=== PATIENT | female | born 1955 | race Caucasian/White ===

== ENCOUNTER 2019-06-11 04:08 | Day surgery (SDC) | payer BC, SELFPAY | END 2019-06-11 14:26 | disposition home or self-care (01) | PROVIDERS: Emergency Provider Emergency Medicine; Visit Provider Urology | DX: N20.1 Calculus of ureter (principal) | CPT/HCPCS: 52353; 74176; 76705; 80053; 81001; 82365; 83690; 83735; 85025; 88300; 96361; 96365; 96374; 96375; 99285; C2625; J2270; J2405 ×2; J2704; J2710; J3010; J3490 ==

== ENCOUNTER 2019-12-19 15:08 | Outpatient (CLI) | payer MEDICARE, BC, SELFPAY ==
--- NOTE | 2019-12-19 15:15 | XRR_ITS ---
PROCEDURE INFORMATION: Exam: XR Abdomen, 1 View Exam date and time: 12/19/2019 3:34 PM Age: 64 years old Clinical indication: Condition or disease; Other: Ureteral stone; Prior surgery; Surgery date: 6+ months; Surgery type: Hysterectomy TECHNIQUE: Imaging protocol: XR of the abdomen. Views: Frontal supine view of the abdomen. 1 View. COMPARISON: CR XR KUB [id number] 06/15/2019 10:17 AM FINDINGS: Gastrointestinal tract: Normal. No bowel dilation. Organs: No kidney or ureteral stone evident. There are 2 right upper quadrant calcified gallstones. Bones/joints: Unremarkable. XR/XR KUB [id number] IMPRESSION: Gallstones. No kidney or ureteral stone evident.
== END 2019-12-19 15:09 | disposition home or self-care (01) ==
LOC: RAD 15:25
PROVIDERS: Family Provider Internal Medicine; PCP Internal Medicine; Visit Provider Urology
DX: N20.1 Calculus of ureter (principal); K80.80 Other cholelithiasis without obstruction
CPT/HCPCS: 74018

== ENCOUNTER 2021-05-18 09:02 | Outpatient (CLI) | payer MEDICARE, BC, SELFPAY ==
--- NOTE | 2021-05-18 09:11 | MM_ITS ---
WS: [id number] BILATERAL SCREENING DIGITAL MAMMOGRAM WITH CAD HISTORY: SCREENING COMPARISON: None available. Bilateral CC and MLO views submitted. Computer aided detection analyzed. Breast composition: There are scattered areas of fibroglandular density. No suspicious masses, microc alcifications or architectural distortion. Benign calcifications in the anterior LEFT breast. MM/[place] [id number] IMPRESSION: BI-RADS: 2-Benign FOLLOW UP: 1 Year Follow-up
== END 2021-05-18 09:03 | disposition home or self-care (01) ==
LOC: RADSHAW 09:09
PROVIDERS: PCP Internal Medicine; Visit Provider Internal Medicine
DX: Z12.31 Encounter for screening mammogram for malignant neoplasm of breast (principal)
CPT/HCPCS: 77067

== ENCOUNTER → 2021-07-14 09:22 | Outpatient (BNVA) | payer MEDICARE, BC, SELFPAY | PROVIDERS: PCP Internal Medicine; Visit Provider Nurse Practitioner Family | DX: Z20.822 Contact with and (suspected) exposure to COVID-19 (principal) | CPT/HCPCS: 87635 ==

== ENCOUNTER 2022-02-08 14:25 | Outpatient (CLI) | payer MEDICARE, BC, SELFPAY ==
--- NOTE | 2022-02-08 14:33 | XR_ITS ---
WS: [email or web address] XR KUB [id number] REASON FOR EXAM: UROLITHIASIS FINDINGS: Gallbladder calculi. No renal or ureteral calculi are identified. No calculi are seen overlying the bladder. No other significant abdominal abnormality. Degenerative change in the right sacroiliac joint. XR/XR KUB [id number] IMPRESSION: No urinary tract calculi identified.
== END 2022-02-08 14:26 | disposition home or self-care (01) ==
LOC: RAD 14:28
PROVIDERS: PCP Internal Medicine; Visit Provider Urology
DX: N20.9 Urinary calculus, unspecified (principal)
CPT/HCPCS: 74018; 81003

== ENCOUNTER 2023-01-21 09:14 | Outpatient (CLI) | payer MEDICARE, OTHER, SELFPAY ==
--- NOTE | 2023-01-21 09:25 | XR_ITS ---
WS: [email or web address] XR hand RT min 3V* [id number] REASON FOR EXAM: right thumb pain after fall FINDINGS: No fracture or dislocation identified. Moderate narrowing of the joint spaces of the DIP joints with subchondral sclerosis and osteophytosis . Similar arthropathic change in the metacarpal phalangeal joint and in the carpal metacarpal joint o f the thumb. The arthropathic change at the base of the thumb is significant. XR/XR hand RT min 3V* [id number] IMPRESSION: Osteoarthritis of the right hand as above. No acute abnormality.
== END 2023-01-21 09:15 | disposition home or self-care (01) ==
PROVIDERS: PCP Family Medicine; Visit Provider Family Medicine
DX: M19.041 Primary osteoarthritis, right hand (principal); Z13.6 Encounter for screening for cardiovascular disorders; R73.09 Other abnormal glucose
CPT/HCPCS: 73130; 80053; 80061

== ENCOUNTER 2023-02-28 17:04 | Outpatient (CLI) | payer MEDICARE, OTHER, SELFPAY | END 2023-02-28 17:05 | disposition home or self-care (01) | LOC: LAB 17:08 | PROVIDERS: PCP Family Medicine; Visit Provider Family Medicine | DX: E03.9 Hypothyroidism, unspecified (principal) | CPT/HCPCS: 36415; 84443 ==

== ENCOUNTER → 2023-03-23 14:51 | Outpatient (BNVA) | payer MEDICARE, OTHER, SELFPAY | PROVIDERS: PCP Family Medicine; Visit Provider Family Medicine | DX: R73.09 Other abnormal glucose (principal) | CPT/HCPCS: 83036 ==

== ENCOUNTER 2023-04-26 14:05 | Outpatient (CLI) | payer MEDICARE, OTHER, SELFPAY ==
--- NOTE | 2023-04-26 14:13 | XR_ITS ---
WS: [email or web address] EXAMINATION: XR KUB [id number] REASON FOR EXAM: r flank pain, hx of stones COMPARISON: 02/08/2022 ORDER DATE: 04/26/2023 2:15 PM FINDINGS: Gallbladder calculi. No renal or ureteral calculi are identified. No calculi are seen overlying the bladder. No other significant abdominal abnormality. Degenerative change in the right sacroiliac joint. XR/XR KUB [id number] IMPRESSION: No urinary tract calculi identified. No interval change compared with the last study
== END 2023-04-26 14:06 | disposition home or self-care (01) ==
LOC: RAD 14:07
PROVIDERS: PCP Family Medicine; Visit Provider Family Medicine
DX: R10.9 Unspecified abdominal pain (principal); Z87.442 Personal history of urinary calculi
CPT/HCPCS: 74018; 81000

== ENCOUNTER 2023-05-12 06:00 | Outpatient (CLI) | payer MEDICARE, OTHER, SELFPAY | END 2023-05-12 06:01 | disposition home or self-care (01) | LOC: SOT 05-13 15:20 | PROVIDERS: PCP Family Medicine; Visit Provider Student in an Organized Health Care Education/Training Program | DX: Z46.89 Encounter for fitting and adjustment of other specified devices (principal); M79.644 Pain in right finger(s); M65.331 Trigger finger, right middle finger | CPT/HCPCS: 97760; 99203; L3925 ==

== ENCOUNTER 2023-05-18 13:37 | Outpatient (CLI) | payer MEDICARE, OTHER, SELFPAY ==
--- NOTE | 2023-05-18 13:50 | XR_ITS ---
WS: [email or web address] SCREENING DEXA SCAN [employer] CLINICAL INFORMATION: osteoporosis screening COMPARISON: None. FINDINGS: The L1-L4 bone mineral density measures 1.005 g/cm2. This corresponds to a T score score of -1.5 and Z score of -0.2. Left femoral neck bone mineral density measures 0.743 g/cm2. This corresponds to a T score of -2.1 an d Z score of -1.0. Right femoral neck bone mineral density measures 0.739 g/cm2. This corresponds to a T score -2.1of an d Z score of -1.0. Mean femoral neck bone mineral density measures 0.741 g/cm2. This corresponds to a T score of -2.1 an d Z score of -1.0. XR/XR DEXA axial skeleton* [id number] IMPRESSION: Osteopenia lumbar spine. Osteopenia femoral necks. Patient's FRAX calculated 10 year probability for major osteoporotic fracture i s 19.9 % and osteoporotic hip fracture is 4.7%.
== END 2023-05-18 13:38 | disposition home or self-care (01) ==
LOC: RAD 13:38
PROVIDERS: PCP Family Medicine; Visit Provider Family Medicine
DX: Z13.820 Encounter for screening for osteoporosis (principal); M85.89 Other specified disorders of bone density and structure, multiple sites; Z78.0 Asymptomatic menopausal state
CPT/HCPCS: 77063; 77067; 77080

== ENCOUNTER 2023-05-18 15:46 | Outpatient (CLI) | payer MEDICARE, OTHER, SELFPAY ==
--- NOTE | 2023-05-18 | MM_ITS ---
WS: [id number] Bilateral screening 3D tomosynthesis digital mammogram, 05/18/2023 Clinical Data: SCREENING Comparison: 05/18/2021 Findings: The breast parenchymal pattern shows fibroglandular tissue. No spiculated masses or clustered calcifi cations are seen. There are no secondary signs of carcinoma. MM/[place] [id number] Impression: 1. Negative bilateral mammogram unchanged. 2. Recommend annual screening mammograms. BIRADS: 1-Negative FOLLOW UP: 1 Year Follow-up The CAD body design checker was used.
== END 2023-05-18 15:47 | disposition home or self-care (01) ==
LOC: MOBLMAM 15:49
PROVIDERS: PCP Family Medicine; Visit Provider Family Medicine
DX: Z12.31 Encounter for screening mammogram for malignant neoplasm of breast (principal); Z13.820 Encounter for screening for osteoporosis
CPT/HCPCS: 77063; 77067; 77080

== ENCOUNTER → 2024-03-28 08:58 | Outpatient (BNVA) | payer MEDICARE, OTHER, SELFPAY | PROVIDERS: PCP Family Medicine; Visit Provider Family Medicine | DX: E03.9 Hypothyroidism, unspecified (principal); I10 Essential (primary) hypertension; M85.80 Other specified disorders of bone density and structure, unspecified site; M65.30 Trigger finger, unspecified finger | CPT/HCPCS: 80053; 82306; 84443 ==

== ENCOUNTER → 2024-04-26 08:14 | Outpatient (BNVA) | payer MEDICARE, OTHER, SELFPAY | PROVIDERS: PCP Family Medicine; Visit Provider Physician Assistant | DX: M79.642 Pain in left hand; M65.331 Trigger finger, right middle finger; G56.03 Carpal tunnel syndrome, bilateral upper limbs | CPT/HCPCS: 73130; 99214 ==

== ENCOUNTER → 2024-05-04 10:05 | Outpatient (BNVA) | payer MEDICARE, OTHER, SELFPAY | PROVIDERS: PCP Family Medicine; Visit Provider Specialist | DX: G56.03 Carpal tunnel syndrome, bilateral upper limbs (principal); M79.644 Pain in right finger(s); M65.30 Trigger finger, unspecified finger | CPT/HCPCS: 95886; 95910 ==

== ENCOUNTER → 2024-05-17 09:07 | Outpatient (BNVA) | payer MEDICARE, OTHER, SELFPAY | PROVIDERS: PCP Family Medicine; Visit Provider Physician Assistant | DX: G56.01 Carpal tunnel syndrome, right upper limb (principal) | CPT/HCPCS: 99214 ==

== ENCOUNTER 2024-05-31 09:11 | Day surgery (SDC) | payer MEDICARE, OTHER, SELFPAY ==
[2024-05-31] VITALS (7 sets, daily range): BP systolic 113–148; BP diastolic 60–78; PULSE 53–65; RESP 17–18; TEMP 36.2–36.8; O2SAT 97–100; BMI 27.8
[2024-05-31] MEDS: acetaminophen 1,000 MG/100 ML PIGGYBACK 400 MG IV (09:52)
[2024-05-31] MEDS: sodium chloride 0.9% 1,000 ML 30 ML IV (09:52)
[2024-05-31] MEDS: scopolamine 1.5 Patch 1 PATCH TRANSDERMA (09:52)
[2024-05-31] MEDS: ketorolac 30 mg/mL INJ IVP (09:54)
--- NOTE | 2024-05-31 09:58 | W.PM.OPSUD ---
Surgery/Procedure H&P Update DATE OF PROCEDURE: May 31, 2024 DATE H&P PERFORMED: 05/17/24 H&P UPDATE INFORMATION: I have reviewed H&P completed within last 30 days, I have examined patient prior to procedure and No changes to prior documentation PREOP DIAGNOSIS: Right middle finger trigger, right carpal tunnel syndrome PRIMARY INDICATION FOR PROCEDURE: Right middle finger trigger, right carpal tunnel syndrome PLANNED PROCEDURE: Operation Date: 05/31/24 10:55 Proposed Procedures p Right middle finger trigger release(Right) - Jamison Graham DO s Carpal Tunnel Release(Right) - Jamison Graham DO
--- NOTE | 2024-05-31 10:47 | ANES.PREANE2 ---
Pre-Anesthetic Assessment Height/Weight: Height 1.6 m Weight 71.214 kg Temp Pulse Resp BP Pulse Ox O2 Del Method 97.8 F 61 17 148/74 97 Room Air 05/31/24 09:38 05/31/24 09:38 05/31/24 09:38 05/31/24 09:38 05/31/24 09:38 05/31/24 09:39 Preop Diagnosis: Right middle finger trigger, right carpal tunnel syndrome Operation Date: 05/31/24 10:55 Proposed Procedures p Right middle finger trigger release(Right) - Jamison Santos, DO s Carpal Tunnel Release(Right) - Jamison Santos, DO Familial anesthetic complications: None Was Beta Kilo taken within 24 hours: N/A Was Clonidine taken within 24 hours: N/A Last intake: Intake Last Liquid Date 05/30/24 Last Liquid Time 22:00 Last Solid Date 05/30/24 Last Solid Time 18:00 Social No alcohol and No tobacco Exam alert, oriented x 3, clear to auscultation bilaterally and regular rate & rhythm Airway Mallampati: Class II Dentition: other (missing) CV/HEM Hypertension Metabolic Thyroid Disease Anesthetic Plan ASA status: 2 Anesthesia: MAC Risk of > 500 ml blood loss (7ml/kg in children): No Medications/Allergies Home Medications Medication Instructions Recorded Confirmed Last Taken Type lysine 500 mg tablet (L-Lysine) 500 mg PO DAILY 12/19/19 05/30/24 05/09/24 History magnesium 250 mg tablet 250 mg PO DAILY 12/19/19 05/30/24 05/09/24 History ascorbic acid (vitamin C) 500 mg 500 mg PO DAILY 01/20/23 05/30/24 05/09/24 History capsule cholecalciferol (vitamin D3) 50 50 mcg PO DAILY 01/20/23 05/30/24 05/09/24 History mcg (2,000 unit) capsule cyanocobalamin (vitamin B-12) 1,000 mcg PO DAILY 01/20/23 05/30/24 05/09/24 History 1,000 mcg capsule zinc gluconate 50 mg tablet 50 mg PO DAILY 01/20/23 05/30/24 05/09/24 History levothyroxine 100 mcg tablet 100 mcg PO DAILY 05/30/24 05/31/24 05/31/24 History lisinopril 20 mg tablet 20 mg PO DAILY 05/30/24 05/30/24 05/30/24 History valacyclovir 1 gram tablet 1,000 mg PO PRN PRN Cold Sores 05/30/24 05/30/24 05/23/24 History ondansetron 4 mg disintegrating 4 mg PO Q8H PRN nausea and 05/31/24 Unknown Rx tablet vomiting 3 days #9 tabs tramadol 50 mg tablet 50 mg PO Q6H PRN pain #20 tabs 05/31/24 Unknown Rx Allergies Allergy/AdvReac Type Severity Reaction Status Date / Time No Known Allergies Allergy Verified 05/31/24 09:34 Current Medications Generic Name Dose Route Start Last Admin Trade Name Freq PRN Reason Stop Dose Admin Sodium Chloride 1,000 mls @ 30 mls/hr 05/31/24 09:30 05/31/24 09:52 Sodium Chloride 0.9% IV 06/01/24 09:29 30 mls/hr .Q24H TWILA Administration PFSH Anesthesia Medical History Osteopenia High risk for hip fracture Recurrent cold sores Degenerative arthritis of lumbar spine Cholelithiasis Hiatal hernia Diverticulosis Fatty liver Hypothyroidism Hypertension Urinary incontinence, mixed History of kidney stones Surgical History History of lithotripsy History of total hysterectomy with bilateral salpingo-oophorectomy (BSO) Family History Mother , 85 Dementia Hypothyroidism Father , 67 CAD (coronary artery disease) Thyroid cancer Sister Cancer bladder Social History Smoking and tobacco/nicotine status: never used tobacco/nicotine Alcohol intake: never Substance/Drug Use: never Lives independently: Yes Household members: spouse Marital status: Number of children: 2 Number of grandchildren: 3 Current occupational status: retired Previous occupational history: pre-k paraprofessional Denae/Nondenominational: Jehovah'[employer] Witness Agree to transfusion: Yes Data Anesthesia Cardiac Studies: No Data to Display
[2024-05-31] MEDS: ceFAZolin 2,000 MG in sodium chloride 0.9% (plus) 50 ML 100 MG IV (11:26)
[2024-05-31] MEDS: lidocaine 1% INJ 10 mL (per mL) 5 ML XX (11:53)
[2024-05-31] MEDS: ROPivacaine 0.5% SDV 30 mL 150 MG INJECTION (11:54)
[2024-05-31] MEDS: lidocaine-epi 1% 20 mL INJ 5 ML INJECTION (11:55)
--- NOTE | 2024-05-31 12:14 | P.BOP_ITS ---
Date of Procedure: [05/31/2024] Surgeon: Jamison Graham DO Carpet Inspector Finished(s): None Procedure(s) performed: Right carpal tunnel release Right middle finger trigger release Findings of the procedure(s): Patient found to have right carpal tunnel syndrome, right middle finger trigger underwent procedure as planned without issues or complications. Estimated blood loss: 5 mL Specimen(s) removed: None Post-operative diagnosis: Right middle finger trigger, right carpal tunnel syndrome
--- NOTE | 2024-05-31 12:16 | PM.OP ---
Operative Report Date of procedure: May 31, 2024 Surgeon: Jamison Graham DO Procedure: Preoperative diagnosis: Right carpal tunnel syndrome Right middle finger trigger Post-op diagnosis: Same Procedure done: 1.?Right carpal tunnel?release 2. Right middle finger trigger release Surgeon: Jamison Graham DO Anesthesia: MAC (Local) Estimated blood loss: 5 mL Tourniquet time 15 minutes IV fluids: See anesthesia?record Complications: None Findings: See operative?report narrative Condition: stable Disposition: same day Brief History: Patient is a pleasant 68 year-old female with?right carpal tunnel syndrome and right middle finger trigger. Patient has been worked up in the outpatient setting findings and physical examination consistent with this.? Patient nerve conduction studies consistent with carpal tunnel syndrome.? We detailed out patient's?risk benefits complication alternatives with surgical and nonsurgical treatment options. Through shared decision making, patient agrees to proceed with surgical intervention of the right carpal tunnel?release and right middle finger trigger release.? Patient understands and agrees with current plan.? All questions answered.? Patient elects to proceed with surgical intervention. Procedure: Patient seen and evaluated in the preoperative holding area.? Consent was?reviewed and signed with patient.? Correct extremity was marked.? Patient was seen evaluated by the anesthesia department once cleared for surgery was brought back to the operative suite.? Patient was kept on [facility] in supine position all bony prominences were well-padded patient properly secured to the bed.??Right upper extremity was then placed onto an armboard.? A nonsterile tourniquet was applied to the?RIght upper arm.? Patient underwent anesthesia per the anesthesia department.? Patient's?Right upper extremity was then prepped and draped in standard orthopedic fashion.? Final timeout performed.? Patient?received appropriate preoperative antibiotics. Under sterile aseptic technique patient?received local anesthesia over the preplanned carpal tunnel and middle finger trigger incision site. Esmarch was used to exsanguinate the?Right upper extremity and tourniquet was insufflated to 250 mmHg. I started with the right middle finger trigger release. Once appropriately anesthetized a standard oblique incision was made centering over the A1 junior following patient's flexor crease.? Sharp scalpel incision was made only through skin and then switched to Littler dissection scissors and spread longitudinally directly over the flexor tendon sheath.? I then mobilized both radially and ulnarly and Kasdan retractors were used and placed by my care team assistant to protect neurovascular bundle.? Next I visualized the A1 junior and this was incised with a scalpel.? I then switched to dissection scissors and released the A1 junior both proximally as well as distally to its entirety.? Significant tendon sheath fluid was noted consistent with inflammation.? Mild fraying of the flexor tendons noted but no tear.? At this point I utilized a rag nail and pulled the tendons FDS and FDP out of the incision and no?triggering was noted.? Finger was taken through range of motion and no evidence of triggering. I then had anesthesia wake up the patient and patient was able to actively flex and extend with no?triggering.? This point thorough irrigation was performed.? I then subsequently patient was placed deeper under MAC anesthesia and proceeded with the carpal tunnel release. A standard mini open?Right carpal tunnel incision was made.? Starting distally at Davila's cardinal line in line with the fourth?ray extending proximally distal to the wrist crease centered over the carpal tunnel.? Sharp scalpel incision was made through skin and subcutaneous tissue.? Self-retaining?retractor was placed and the palmar fascia was identified.? This was then split longitudinally and direct visualization of the transverse carpal ligament was then made.? I then utilizing scalpel feathered through the transverse carpal ligament until I entered the floor of the transverse carpal tunnel ligament into the carpal tunnel.? Next I switched to dissection scissors and completed my?release of the transverse carpal ligament distally with care to protect the?recurrent motor branch.? I completely?released into the palmar fat and until no entrapment was noted distally.? Care was made to protect the superficial palmar arch during my distal dissection.?? Next I utilized a nasal speculum placed on top of the transverse carpal ligament and utilize this to?retract the subcutaneous fat and tissue and under direct loupe magnification was able to identify the transverse carpal ligament.? Next I then placed a [place] underneath the transverse carpal tunnel ligament to protect the contents of the carpal tunnel and subsequently utilizing dissection scissors under loupe magnification completely?released the transverse carpal ligament proximally into the median antebrachial fascia.? Care was made to protect the palmar cutaneous branch by keeping my scissors curved ulnarly.? Once completely?released, I then placed my [place] and had appropriate decompression of the carpal tunnel proximally as well as distally.? I then inspected the contents of the carpal tunnel which showed an hourglass shape of the median nerve showing its compression.? No masses were noted.? Tendons appeared healthy.? Incisions were then thoroughly irrigated.? Tourniquet deflated.? Hemostasis satisfactory with bipolar electrocautery.? I then closed the incision with interrupted nylon stitches.? Xeroform 4 x 4's and a bulky soft dressing was applied.? Patient was then awakened from anesthesia and taken to PACU in stable condition.? Patient tolerated procedure without complications. Disposition: Patient taken to PACU in stable condition?recovering well.? Dressing clean dry and intact.? Patient will?receive appropriate discharge instructions as well as pain medication postoperatively.? Patient to follow-up with me in the office in 2 weeks.? Given patient does have some middle finger stiffness and decreased PIP range of motion we will get her started aggressively with OT hand therapy next week. They understand they may be weightbearing as tolerated to the?right hand.? Patient should keep incision clean dry and intact.? Patient understands if any questions or concerns may contact the office.
--- NOTE | 2024-05-31 13:15 | ANE.PACU2 ---
Inpatient post-anesthesia follow up: Airway intact: Yes Vital signs: Temperature 97.3 F Pulse Rate 53 Respiratory Rate 17 Blood Pressure 146/78 Pulse Oximetry 100 Oxygen Delivery Me thod Room Air Oxygen Flow Rate Fraction of Inspir ed Oxygen Hydration adequate: Yes Nausea and vomiting: No Pain level: 1 Mental status: Baseline
== END 2024-05-31 13:19 | disposition home or self-care (01) ==
PROVIDERS: PCP Family Medicine; Visit Provider Student in an Organized Health Care Education/Training Program
PROC: (CPT 26055; principal; 2024-05-31 10:45)
PROC: (CPT 64721; 2024-05-31 10:45)
DX: G56.01 Carpal tunnel syndrome, right upper limb (principal); M65.331 Trigger finger, right middle finger; I10 Essential (primary) hypertension; E03.9 Hypothyroidism, unspecified
CPT/HCPCS: 26055; 64721; J0131; J0690; J1885; J2704; J2795; J3010; J7030

== ENCOUNTER 2024-06-08 10:41 | Outpatient (RCR) | payer MEDICARE, OTHER, SELFPAY | END 2024-07-07 23:59 | disposition home or self-care (01) | LOC: SOT 10:41 | PROVIDERS: Visit Provider Student in an Organized Health Care Education/Training Program | DX: G56.01 Carpal tunnel syndrome, right upper limb (principal); M65.331 Trigger finger, right middle finger | CPT/HCPCS: 97022; 97110; 97140; 97165; 97530 ==

== ENCOUNTER → 2024-06-11 09:10 | Outpatient (BNVA) | payer MEDICARE, OTHER, SELFPAY | PROVIDERS: PCP Family Medicine; Visit Provider Physician Assistant | DX: Z98.890 Other specified postprocedural states (principal) | CPT/HCPCS: 99024 ==

== ENCOUNTER 2024-07-08 06:00 | Outpatient (RCR) | payer MEDICARE, OTHER, SELFPAY | END 2024-08-06 23:59 | disposition home or self-care (01) | LOC: SOT 06:00 | PROVIDERS: PCP Family Medicine; Visit Provider Student in an Organized Health Care Education/Training Program | DX: G56.01 Carpal tunnel syndrome, right upper limb (principal); M65.331 Trigger finger, right middle finger | CPT/HCPCS: 97022; 97110; 97140 ==

== ENCOUNTER → 2024-07-26 15:10 | Outpatient (BNVA) | payer MEDICARE, OTHER, SELFPAY | PROVIDERS: PCP Family Medicine; Visit Provider Student in an Organized Health Care Education/Training Program | DX: Z98.890 Other specified postprocedural states (principal); G56.01 Carpal tunnel syndrome, right upper limb | CPT/HCPCS: 99213 ==

== ENCOUNTER 2024-08-07 06:30 | Outpatient (RCR) | payer MEDICARE, OTHER, SELFPAY | END 2024-09-06 23:59 | disposition home or self-care (01) | LOC: SOT 06:30 | PROVIDERS: PCP Family Medicine; Visit Provider Student in an Organized Health Care Education/Training Program | DX: M65.331 Trigger finger, right middle finger (principal); G56.01 Carpal tunnel syndrome, right upper limb | CPT/HCPCS: 97022; 97110; 97140 ==

== ENCOUNTER 2025-01-21 10:14 | Outpatient (CLI) | payer MEDICARE, OTHER, SELFPAY ==
--- NOTE | 2025-01-21 10:23 | XRR_ITS ---
PROCEDURE INFORMATION: Exam: XR Right Hip Exam date and time: 01/21/2025 10:41 AM Age: 69 years old Clinical indication: Hip pain; Right hip; X1 year off and on, no specific injury, pain in hip joint typically while walking; Additional info: Right hip pain weakness TECHNIQUE: Imaging protocol: Radiologic exam of the right hip. Views: 1 view hip with pelvis when performed. COMPARISON: CT kidney stone [id number] 06/11/2019 5:50 AM FINDINGS: Bones/joints: Moderate joint space narrowing in the right hip. No acute fracture. Soft tissues: Unremarkable. XR/XR hip RT 2-3V wo/w pel* [id number] IMPRESSION: 1. No acute fracture or dislocation. 2. Moderate right hip arthrosis.
== END 2025-01-21 10:15 | disposition home or self-care (01) ==
PROVIDERS: PCP Family Medicine; Visit Provider Family Medicine
DX: M16.11 Unilateral primary osteoarthritis, right hip (principal); I10 Essential (primary) hypertension; E03.9 Hypothyroidism, unspecified
CPT/HCPCS: 73502; 80053; 84443

== ENCOUNTER → 2025-02-05 15:16 | Outpatient (BNVA) | payer MEDICARE, OTHER, SELFPAY | PROVIDERS: PCP Family Medicine; Visit Provider Student in an Organized Health Care Education/Training Program | DX: G56.02 Carpal tunnel syndrome, left upper limb (principal) | CPT/HCPCS: 20600; 20605; 99214; J3301; J3490 ==

== ENCOUNTER 2025-02-05 16:55 | Outpatient (CLI) | payer MEDICARE, OTHER, SELFPAY | END 2025-02-05 16:56 | disposition home or self-care (01) | LOC: SPT 16:56 | PROVIDERS: PCP Family Medicine; Visit Provider Student in an Organized Health Care Education/Training Program | DX: Z46.89 Encounter for fitting and adjustment of other specified devices (principal); G56.02 Carpal tunnel syndrome, left upper limb | CPT/HCPCS: L3908 ==

== ENCOUNTER 2025-10-02 12:29 | Outpatient (CLI) | payer MEDICARE, OTHER, SELFPAY ==
--- NOTE | 2025-10-02 12:40 | MM_ITS ---
WS: [email or web address] BILATERAL 3D TOMOSYNTHESIS DIGITAL SCREENING MAMMOGRAPHY WITH CAD CLINICAL INFORMATION: breast cancer screening HISTORY: Screening mammogram. No current complaints. COMPARISON: 2022 TECHNIQUE: Bilateral CC and MLO views. FINDINGS: Scattered fibroglandular densities bilaterally. No suspicious focal mass, asymmetry, calcifications, or architectural distortion. No evidence of malignancy. A few incidental punctate calcifications. MM/MM scr tomosynthesis [id number] IMPRESSION: DENSITY: There are scattered areas of fibroglandular density. BI-RADS: 2 - Benign. FOLLOW UP: 1 Year Follow-up Recommend return to annual screening mammography.
--- NOTE | 2025-10-02 13:00 | XR_ITS ---
WS: [email or web address] SCREENING DEXA SCAN [employer] CLINICAL INFORMATION: osteoporosis screening COMPARISON: 2022 FINDINGS: The L1-L4 bone mineral density measures 0.983 g/cm2. This corresponds to a T score score of -1.6 and Z score of -0.3. Left femoral neck bone mineral density measures 0.740 g/cm2. This corresponds to a T score of -2.1 and Z score of -0.9. Right femoral neck bone mineral density measures 0.746 g/cm2. This corresponds to a T score -2.1of and Z score of -0.8. Mean femoral neck bone mineral density measures 0.743 g/cm2. This corresponds to a T score of -2.1 and Z score of -0.9. XR/XR DEXA axial skeleton* [id number] IMPRESSION: Osteopenia lumbar spine. Osteopenia femoral necks. Patient's FRAX calculated 10 year probability for major osteoporotic fracture i s 10.7% and osteoporotic hip fracture is 1.9%. Bone density lumbar spine decreased -2.2% Bone density femoral necks increased 0.3%
== END 2025-10-02 12:30 | disposition home or self-care (01) ==
LOC: RAD 12:31
PROVIDERS: PCP Family Medicine; Visit Provider Family Medicine
DX: Z13.820 Encounter for screening for osteoporosis (principal); Z12.31 Encounter for screening mammogram for malignant neoplasm of breast; Z78.0 Asymptomatic menopausal state; R92.323 Mammographic fibroglandular density, bilateral breasts; R92.1 Mammographic calcification found on diagnostic imaging of breast; M85.89 Other specified disorders of bone density and structure, multiple sites
CPT/HCPCS: 77063; 77067; 77080